=== PATIENT | male | born 1955 | race Native Hawaiian/Other Pacific Islander ===

== ENCOUNTER 2017-05-26 07:31 | Day surgery (SDC) | payer MEDICAID ==
[2017-05-26] MEDS ORDERED: Propofol 10 mg/ml Inj (20 ML) ONE (09:43)
[2017-05-26] MEDS ORDERED: Lactated Ringer's 500 ML IV SCH (10:00)
[2017-05-26 10:48] VITALS: TEMP 97.7
[2017-05-26 11:38] VITALS: BP 119/79; PULSE 68; RESP 12; O2SAT 100
== END 2017-05-26 11:35 | disposition home or self-care (01) ==
LOC: C.ENDO 07:31
PROVIDERS: ATTEND Internal Medicine
DX: D12.3 Benign neoplasm of transverse colon (principal); D12.5 Benign neoplasm of sigmoid colon; K57.30 Diverticulosis of large intestine without perforation or abscess without bleeding; K64.8 Other hemorrhoids; K29.70 Gastritis, unspecified, without bleeding; D12.4 Benign neoplasm of descending colon; K62.1 Rectal polyp
CPT/HCPCS: 43239; 45385; 88305; 88313; 88342; J2704; J3010; J7120

== ENCOUNTER 2017-06-23 06:46 | Day surgery (SDC) | payer MEDICAID ==
[2017-06-23 07:07] VITALS: BMI 23.1
[2017-06-23] MEDS ORDERED: Methylene Blue 10 mg/mL(10ml) IV ONE (07:59)
[2017-06-23] MEDS ORDERED: Propofol 10 mg/ml Inj (20 ML) ONE (09:17)
[2017-06-23] MEDS ORDERED: Lidocaine Hydrochloride 5 ML INJ ONE (09:37)
[2017-06-23] MEDS ORDERED: Rocuronium 10 mg/ml (5 ml) ONE (09:37)
[2017-06-23] MEDS ORDERED: Succinylcholine Chloride 20 mg/ml Syr (5 ml) IV ONE (09:37)
[2017-06-23] MEDS ORDERED: Esmolol 100 mg/10ml Inj IV ONE (10:30)
[2017-06-23] MEDS ORDERED: ePHEDrine 50 mg/ml Inj ONE (10:30)
[2017-06-23] MEDS ORDERED: Neostigmine Methylsulfate 3mg/3ml Syringe IV ONE (10:33)
[2017-06-23 11:45] VITALS: TEMP 97.1
--- NOTE | 2017-06-23 14:39 | RAD ---
Chest x-ray single frontal view History: Abdominal pain. Comparison: CT dated 06/16/2017 Findings: Small right pleural effusion with patchy bibasilar airspace opacities. Mild venous congestion. Gaseous distention of the stomach. Distended loops of bowel in the upper abdomen. Degenerative changes in the spine and shoulders. Impression: Small right pleural effusion with patchy bibasilar airspace opacities. Mild venous congestion. Gaseous distention of the stomach. Distended loops of bowel in the upper abdomen.
[2017-06-23 14:52] VITALS: BP 120/79; PULSE 72; RESP 18; O2SAT 99
== END 2017-06-23 14:25 | disposition home or self-care (01) ==
LOC: C.ENDO 06:46
PROVIDERS: ATTEND Internal Medicine
DX: D37.1 Neoplasm of uncertain behavior of stomach (principal); K29.70 Gastritis, unspecified, without bleeding
CPT/HCPCS: 43237; 43254; 71010; 88305; J0171; J2405; J2704; J2710; J3010